=== PATIENT | female | born 1990 | race Asian ===

== ENCOUNTER 2023-09-16 03:32 | Outpatient (CLI) | payer OTHER ==
[~2023-09-16] VITALS: Ht 167.6 cm; Wt 99.1 kg
--- NOTE | 2023-09-16 03:49 | NUR ---
To unit via wheelchair for labor assessment, accompanied by spouse. Oriented to room, monitor, plan of care. Pt reports irregular ctx all day, becoming more regular this evening. Pt reports yesterday she had "3 times when I wiped after going to the bathroom, I had small drops of blood. None on my underwear, only when I wiped." SVE with neg amniotrace, no free fluid no bloody show. 2-3/75%/-2.
[2023-09-16 04:00] VITALS: BP 112/75; PULSE 77; TEMP 98
[2023-09-16] MEDS ORDERED: LR 1,000 ML IV PRN (04:00)
[2023-09-16 05:10] VITALS: PULSE 75
--- NOTE | 2023-09-16 05:10 | NUR ---
Repeat exam unchanged.
--- NOTE | 2023-09-16 05:30 | NUR ---
PATIENT AND SPOUSE EDUCATED ON DISCHARGE INSTRUCTIONS. QUESTIONS INVITED AND ANSWERED. PATIENT ESCORTED OFF UNIT VIA WHEELCHAIR PER PATIENT REQUEST.
[2023-09-16] MEDS ORDERED: MOTRIN 800800 MG/TAB PO (20:12)
== END 2023-09-16 05:30 | disposition home or self-care (01) ==
LOC: LDRO 03:32
DX: O47.1 False labor at or after 37 completed weeks of gestation (principal); Z3A.40 40 weeks gestation of pregnancy

== ENCOUNTER 2023-09-16 13:04 | Inpatient (IN) | payer OTHER ==
[~2023-09-16] VITALS: Ht 167.6 cm; Wt 109.1 kg
[2023-09-16] VITALS (20 sets, daily range): BP systolic 84–142; BP diastolic 51–87; PULSE 55–85; TEMP 97.4–98.6
--- NOTE | 2023-09-16 13:10 | NUR ---
PT TO UNIT VIA WHEELCHAIR C/O INTENSE CONTRACTIONS. UNABLE TO "STAND OR TALK." SVE UPON ARRIVAL 6-/-2. DENIES LOF. NO FLUID NOTED TO GLOVE WITH SVE. REPORTS POSITIVE MOVEMENT. DECELERATION INTO THE 60'S NOTED UPON ARRIVAL. CORRECTED WITH POSITION CHANGE. NOTIFIED. PT ADMITTED FOR L&D. IV PLACED AND LR INFUSING.
[2023-09-16] MEDS ORDERED: LR & Oxytocin 500 ML IV SCH (13:30)
[2023-09-16] MEDS ORDERED: LR 1,000 ML IV SCH (13:30)
[2023-09-16] MEDS ORDERED: Naloxone 0.4 MG/ML VIAL IV PRN ×2 (13:45→17:15)
[2023-09-16] MEDS ORDERED: ePHEDrine 50 MG/10 ML VIAL IV PRN (13:45)
[2023-09-16] MEDS ORDERED: diphenhydrAMINE 50 MG/ML 1 ML VIAL IV PRN (13:45)
[2023-09-16] MEDS ORDERED: diphenhydrAMINE 25 MG CAP PO PRN (13:45)
[2023-09-16] MEDS ORDERED: Ondansetron 4 MG/2 ML VIAL IV PRN (13:45)
--- NOTE | 2023-09-16 13:49 | NUR ---
PT IN SITTING POSITION ON EDGE OF BED FOR EPIDURAL PLACEMENT. DIFFICULTY TRACING EFM/TOCO DUE TO MATERNAL POSITIONING. MATERNAL VITAL SIGNS STABLE. 1349: SINGLE SHOT PER MARY HAQ. PT TOLERATED PROCEDURE WELL.
[2023-09-16] MEDS ORDERED: ROPivacaine PF 0.2% 200 ML IV ONE (14:00)
[2023-09-16 14:05] LABS: BASO % 0.2 % (0.0-2.0); EOS # 0.3 K/mm3 (0.0-0.7); GRAN # 5.9 K/mm3 (1.4-6.5); GRAN % 70.6 % (42.2-75.2); HEMOGLOBIN 11.7 g/dl (12.5-16.0); LYMPH # 1.6 K/mm3 (1.2-3.4); LYMPH % 19.5 % (20.0-51.0); MEAN CELL VOLUME 86 fl (80.0-100.0); MEAN CORPUSCULAR HEMOGLOBIN 28 pg (27-31); MEAN CORPUSCULAR HGB CONC 33 g/dl (33.0-37.0); MEAN PLATELET VOLUME 10.7 fl (7.4-10.4); MONO # 0.6 K/mm3 (0.1-0.6); MONO % 6.5 % (1.7-9.3); PLATELET COUNT 249 K/mm3 (130-400); RED BLOOD COUNT 4.13 M/mm3 (4.10-5.30); REDCELL DISTRIBUTION WIDTH-CV 15.1 % (11.5-14.5)
[2023-09-16 14:08] LABS: HEMATOCRIT 35.3 % (37.0-47.0)
--- NOTE | 2023-09-16 14:14 | NUR ---
1414: AT BEDSIDE. SVE /0. AROM WITH CLEAR FLUID NOTED.
--- NOTE | 2023-09-16 15:11 | NUR ---
PT ABLE TO FEEL WHEN SHE IN VIRAL. TOCO NO LONGER TRACING CONTRACTIONS DUE TO MATERNAL POSITIONING. FIRM CONTRACTIONS WITH PALPATION Q6 MINUTES. PT STATES IN [place], THEY "BROKE MY WATER AT 7CM, THEN HAD TO START PITOCIN". NOTIFIED, VORB TO BEGIN PITOCIN AT THIS TIME PER PROTOCOL.
--- NOTE | 2023-09-16 15:26 | NUR ---
DECELERATION INTO THE 50'S. ON UNIT. ORDERS TO KEEP PITOCIN ON AND WATCH ONE MORE CONTRACTION. MODERATE VARIABILITY AT THIS TIME.
--- NOTE | 2023-09-16 15:30 | NUR ---
REMAINS ON UNIT. 1530: PT COMPLETE/+1. PT PUSHES WITH AT THIS TIME. OP PRESENTATION NOTED WITH VAGINAL EXAM AND PUSHING EFFORTS. PER , PT PLACED IN LEFT LATERAL POSITION WITH RIGHT LEG IN STIRRUP TO ASSIST WITH ROTATION. 1630: PT BEGINS PUSHING AGAIN WITH THIS RN AND DR HSU. STRONG EFFORT NOTED WITH POSITIVE DESCENT. REMAINS IN OP PRESENTATION, BUT CONTINUES TO PUSH. 1637: OF VIABLE FEMALE INFANT AT THIS TIME. PLACED ON MATERNAL ABDOMEN. STRONG CRY NOTED. CARE OF INFANT ASSUMED BY KINGS[facility] BRIONES. UPON PULSATION OF THE UMBILICAL CORD, CORD IS CLAMPED X2 AND CUT BY FOB. TO WARMER PER MOTHER REQUEST. LOCHIA WNL AT THIS TIME. 1640: OF PLACENTA AT THIS TIME. PITOCIN BOLUS INFUSING PER PROTOCOL. LOCHIA WNL. FUNDUS FIRM AT UMBILICUS. BEGINS REPAIR OF SECOND DEGREE LACERATION. PT DENIES PAIN WITH REPAIR.
[2023-09-16] MEDS ORDERED: Sennosides/Docusate 8.6-50 MG TAB PO SCH (17:00)
[2023-09-16] MEDS ORDERED: Magnes Hydrox (MOM) 80 MG/ML 30 ML CUP PO PRN (17:00)
[2023-09-16] MEDS ORDERED: Loratadine 10 MG TAB PO PRN (17:00)
[2023-09-16] MEDS ORDERED: Acetaminophen 500 MG TAB PO SCH (17:15)
[2023-09-16] MEDS ORDERED: oxyCODONE 5 MG TAB PO PRN (17:15)
[2023-09-16] MEDS ORDERED: Mag/Al Hydrox/Simeth Susp 30 ML CUP PO PRN (17:15)
[2023-09-16] MEDS ORDERED: Measles/Mumps/Rubella Virus Vaccine Live w Diluent 0.5 ML VIAL SQ SCH (17:15)
[2023-09-16] MEDS ORDERED: Ibuprofen 600 MG TAB PO SCH (17:15)
[2023-09-16] MEDS ORDERED: Witch Hazel 50% Pads Bulk TUB TP PRN (17:15)
[2023-09-16] MEDS ORDERED: Phenylephrine/Mineral Oil/Petrolatum 57 GM TUBE RC PRN (17:15)
[2023-09-16] MEDS ORDERED: MOTRIN 800800 MG/TAB PO (20:12)
[2023-09-16] MEDS ORDERED: traZODone 50 MG TAB PO PRN (21:00)
--- NOTE | 2023-09-16 22:00 | NUR ---
2139- PT ASSISTED TO BATHROOM VIA [employer] UNABLE TO VOID AT THIS TIME. PERICARE PERFORMED. PT THEN ASSISTED BACK TO BED VIA [employer] FOR STRAIGHT CATH. 2144- STRAIGHT CATH PERFORMED. 1400ML CLEAR YELLOW URINE OUT. PT TOLERATED WELL. PERICARE PROVIDED, ICE PACK, PERIPAD AND MESH UNDERWEAR AND CLEAN GOWN APPLIED. 2199- PT TO VIA [employer] ORIENTED TO ROOM, INSTRUCTED TO CALL STAFF WHEN READY TO USE THE BATHROOM HER LEGS ARE STILL NUMB FROM THE EPIDURAL. UNDERSTANDING VERBALIZED. PT DENIES QUESTIONS OR CONCERNS.
[2023-09-17 00:20] VITALS: BP 109/65; PULSE 55; TEMP 97.4
--- NOTE | 2023-09-17 00:20 | NUR ---
PT ABLE TO AMBULATE TO BATHROOM, UNABLE TO VOID AT THIS TIME. ASSISTED WITH PERICARE. AMBULATED BACK TO BED.
[2023-09-17 03:41] VITALS: BP 108/69; PULSE 68; TEMP 97.7
[2023-09-17 08:30] VITALS: BP 102/54; PULSE 63; TEMP 97.8
--- NOTE | 2023-09-17 10:23 | NUR ---
Initial visit; Patient thanked [employer] for offering congratulations and God's blessings for the of their baby girl. [employer] thanked mom for choosing our hospital.
[2023-09-17 17:20] VITALS: BP 101/67; PULSE 75; TEMP 98
== END 2023-09-17 20:40 | disposition home or self-care (01) | DRG 807 ==
LOC: LDRO 13:04 → LDR 13:25 → OB 13:25
PROVIDERS: Obstetrics & Gynecology; ADMIT Obstetrics & Gynecology
PROC: 10E0XZZ Delivery of Products of Conception, External Approach (ICD-10-PCS; principal; 2023-09-16)
PROC: 0KQM0ZZ Repair Perineum Muscle, Open Approach (ICD-10-PCS; 2023-09-16)
DX: O48.0 Post-term pregnancy (principal); Z37.0 Single live birth; O99.214 Obesity complicating childbirth; O70.1 Second degree perineal laceration during delivery; O76 Abnormality in fetal heart rate and rhythm complicating labor and delivery; O99.62 Diseases of the digestive system complicating childbirth; K80.20 Calculus of gallbladder without cholecystitis without obstruction; Z23 Encounter for immunization; Z3A.40 40 weeks gestation of pregnancy
CPT/HCPCS: J2590; J2795; J7120